=== PATIENT | male | born 1945 | race African-American/Black ===

== ENCOUNTER 2016-12-08 13:31 | Emergency (ER) | payer OTHER ==
[2016-12-08 13:58] VITALS: BP 132/87
--- NOTE | 2016-12-08 14:34 | UC ---
Respiratory Complaint HPI - HPI Summary HPI Summary: This is a 70 yo male with a h/o HTN and prostate CA who presents with c/o cough x 3 weeks. Cough has been dry, no assoc SOB. He complains of a ST and some nasal congestion. No fever or sick contacts. No n/v. Denies h/o lung dz. He has been using OTC cough medications. - History of Current Complaint Chief Complaint: UCGeneralIllness Stated Complaint: COUGH - Allergies/Home Medications Allergies/Adverse Reactions: Allergies Allergy/AdvReac Type Severity Reaction Status Date / Time No Known Allergies Allergy Verified 12/08/16 13:58 PMH/Surg Hx/FS Hx/Imm Hx Cardiovascular History: Hypertension Cancer History: Prostate Cancer - Surgical History Surgical History: Yes Surgery Procedure, Year, and Place: prostatectomy 10 years ago - Family History Known Family History: Positive: None - Social History Alcohol Use: Rare Substance Use Type: None Smoking Status (MU): Never Smoked Tobacco Review of Systems Constitutional: Negative Skin: Negative Eyes: Negative ENT: Negative Respiratory: Cough Cardiovascular: Negative Gastrointestinal: Negative Genitourinary: Negative Motor: Negative Neurovascular: Negative Musculoskeletal: Negative Neurological: Negative Psychological: Negative All Other Systems Reviewed And Are Negative: Yes Physical Exam Triage Information Reviewed: Yes Appearance: Well-Appearing Vital Signs: Initial Vital Signs Temp 98.2 F 12/08/16 13:54 Pulse 78 12/08/16 13:54 Resp 16 12/08/16 13:54 BP 132/87 12/08/16 13:54 Pulse Ox 100 12/08/16 13:54 Vital Signs Reviewed: Yes ENT Exam: Normal ENT: Positive: Normal ENT inspection, Pharynx normal, TMs normal. Negative: Pharyngeal erythema, Tonsillar swelling, Tonsillar exudate Neck: Positive: Supple, Nontender, No Lymphadenopathy Respiratory: Positive: Lungs clear, Other: - freq dry cough during exam. Negative: Crackles, Rhonchi, Wheezing Cardiovascular: Positive: RRR, No Murmur Abdomen Description: Positive: Nontender, Soft Musculoskeletal: Positive: Strength Intact Neurological: Positive: Alert Psychological Exam: Normal Skin Exam: Normal Skin: Negative: rashes UC Diagnostic Evaluation - Laboratory O2 Sat by Pulse Oximetry: 100 Diagnostic Studies Comment: CXR - NAD Respiratory Course/Dx - Course Course Of Treatment: This is a 70 yo gentleman with HTN and h/o prostate CA who presents with c/o cough x 3weeks. No associated SOB. CXR shows no consolidation suggestive of PNA. Sx's likely related to an acute bronchitis. Due to length of symptoms recommend tx with abx and steroid taper. Also consider the cough being allergy mediated. Recommended f/u with PCP in 1 week - Differential Dx/Diagnosis Differential Diagnosis/HQI/PQRI: Asthma, Bronchitis, CHF, Influenza, Laryngitis Provider Diagnoses: 1. Acute bronchitis Discharge - Discharge Plan Condition: Stable Disposition: HOME Prescriptions: Azithromyxin NOÉ (NF) [Z-Noé (Zithromax) 250 mg tabs #6] 2 tab PO .TODAY, THEN 1 DAILY #6 tab Methylprednisolone [Medrol Dosepak 4 MG*] 4 mg PO .SEE NOÉ INSTRUCTION #1 noé Patient Education Materials: Acute Bronchitis (ED) Referrals: Dutch Francis MD [Primary Care Provider] - 1 Week Additional Instructions: Activity: As tolerated Instructions 1. Please take antibiotic and steroid as directed 2. Please follow up with Dr Francis within the next week to ensure you are improving
--- NOTE | 2016-12-08 14:47 | RAD ---
INDICATION: Prolonged cough for 2 weeks. COMPARISON: June 26, 2013 chest radiograph TECHNIQUE: Dual energy PA and routine lateral views of the chest were obtained. REPORT: Clear lungs and pleural spaces. Negative for pneumothorax. The heart, pulmonary vasculature, and mediastinal contours are unremarkable. Unremarkable osseous structures and soft tissue contours. IMPRESSION: No evidence for acute intrathoracic disease.
== END 2016-12-08 15:05 | disposition home or self-care (01) ==
LOC: UCEAST 13:31
DX: J20.9 Acute bronchitis, unspecified (principal); J02.9 Acute pharyngitis, unspecified; R09.81 Nasal congestion; I10 Essential (primary) hypertension; Z85.46 Personal history of malignant neoplasm of prostate
CPT/HCPCS: 71020; 99212; G0463

== ENCOUNTER 2019-02-09 06:27 | Day surgery (SDC) | payer OTHER ==
[~2019-02-09 06:27] MED LIST: Buffered Lidocaine 1% SYRIN* 1 ML/SYRINGE INTRADERM ONE; Dexamethasone IV* 4 MG/ML 1 ML (4 MG) IV SLOW PU ONE; Dexamethasone IV* 4 MG/ML 1 ML (4 MG) ONE; Famotidine IV* 10 MG/ML 2 ML (20 mg) IV ONE; Famotidine IV* 10 MG/ML 2 ML (20 mg) ONE; Lactated Ringers 1000 ML Bag* 1,000 ML IV SCH; Proparacaine 0.5% OPHTH.SOL* 15 ML BTL ONE; mitoMYcin PWD* 0.2 MG in Sterile Water for Inj* 1 ML OPHTHALMIC SCH
[2019-02-09] MEDS ORDERED: Triamcinolone Acetonide* 40 MG/ML 1 ML VIAL ONE (07:10)
[2019-02-09] MEDS ORDERED: Bupivacaine 0.25% SDV PF* 10 ML VIAL INJ ONE (07:10)
[2019-02-09] MEDS ORDERED: BSS OPTH.SOL* BTL ONE (07:11)
[2019-02-09] MEDS ORDERED: Atropine 1% OPHTH.SOL* 1 DROP BTL 2-5 ML ONE (07:11)
[2019-02-09] MEDS ORDERED: Acetylcholine 1:100 OPTH* OPHTH.SOLN ONE (07:11)
[2019-02-09] MEDS ORDERED: Lidocaine 2% w/ EPI 1:200,000* 20 ML SDV VIAL ONE ×2 (07:12→13:48)
[2019-02-09] MEDS ORDERED: Povidone Iodine 5% OPTH* 30 ML BTL ONE ×2 (07:12→13:48)
[2019-02-09] MEDS ORDERED: Hyaluronidase OVINE* 200 UNIT/ML ML SUBCUT ONE (07:13)
[2019-02-09] MEDS ORDERED: Sodium Bicarbonate 8.4% VIAL* 10 ML VIAL IV ONE (07:13)
[2019-02-09] MEDS ORDERED: Ondansetron INJ* 2 MG/ML VIAL ONE (07:22)
[2019-02-09] MEDS ORDERED: Propofol* 10 MG/ML 20 ML BTL ONE (07:22)
[2019-02-09] MEDS ORDERED: Midazolam* 1 MG/ML 2 ML VIAL (2 MG) ONE (07:24)
[2019-02-09] MEDS ORDERED: Atropine 1MG/ML INJ* 1 ML VIAL ONE (07:31)
[2019-02-09] MEDS ORDERED: Naloxone* 0.4 MG/ML 1 ML VIAL IV PRN (07:54)
[2019-02-09 09:37] VITALS: BP 98/52
--- NOTE | 2019-02-09 11:31 | OP ---
DATE OF OPERATION: 02/09/19 - [facility] DATE OF : 45 SURGEON: Williams May MD ANESTHESIA: Local with MAC. PRE-OP DIAGNOSIS: Glaucoma, right eye. POST-OP DIAGNOSIS: Glaucoma, right eye. OPERATIVE PROCEDURE: Trabeculectomy, right eye. COMPLICATIONS: None. DESCRIPTION OF PROCEDURE: The patient was given retrobulbar anesthesia in the operating room. A 50:50 mixture of 0.25 Marcaine with 2% lidocaine with epinephrine 4 cc injected into the muscle cone without difficulty. A 6-0 silk traction suture was placed through the superior limbus and the eye rotated inferiorly. A fornix based conjunctival peritomy performed centered on the 11 o 'clock position with Yu scissors. Mitomycin-C 0.2 mg/mL was placed on a sponge and soaked subtenon for 2 minutes and thoroughly irrigated with balanced salt solution. A triangular limbal based half scleral thickness corneal flap was made with crescent blade. Anterior chamber entered with 3 mm keratome. Paracentesis made at the 9 o'clock position with 75 blade. Anterior chamber irrigated with 1% non-preservative intracameral lidocaine, Miochol and then some DisCoVisc. A 3 x 1 mm trabecular block excised using the Kyra punch. Peripheral iridectomy performed with Vannas scissors. Scleral flap closed with one 10-0 nylon suture at the apex. Conjunctiva closed with running locking 10- 0 nylon suture and a running locking 10-0 Vicryl suture. Topical atropine and Maxitrol given. Eye was patched. [id number]/[facility] #: [id number] MTDD
[2019-02-09] MEDS ORDERED: Phenylephrine OPHTH SOL 2.5%* 2 ML ONE (13:48)
[2019-02-09] MEDS ORDERED: Neomycin/Polymy/Dex OPTH.SUSP* MAXITROL 0.1% 5 ML ONE (13:48)
[2019-02-09] MEDS ORDERED: Ketorolac 0.5% OPHTH (NF) 0.5 % 5 ML BTL ONE (13:48)
[2019-02-09] MEDS ORDERED: acetaZOLAMIDE TAB* 250 MG ONE (13:48)
[2019-02-09] MEDS ORDERED: Lidocaine 1% MPF ** 5 ML VIAL ONE (13:48)
[2019-02-09] MEDS ORDERED: Cyclopentolate 1% OPTH.SOL* 2 ML BTL ONE (13:48)
[2019-02-09] MEDS ORDERED: Proparacaine 0.5% OPHTH.SOL* 15 ML BTL ONE (13:49)
== END 2019-02-09 08:52 | disposition home or self-care (01) ==
LOC: OREAST 06:27
PROVIDERS: ATTEND Specialist
DX: H40.1113 Primary open-angle glaucoma, right eye, severe stage (principal); Z85.46 Personal history of malignant neoplasm of prostate; I10 Essential (primary) hypertension; E11.9 Type 2 diabetes mellitus without complications; Z79.84 Long term (current) use of oral hypoglycemic drugs
CPT/HCPCS: A9270-GY; J0461; J1100; J2250; J2405; J2704; J3301; J3471; J3490; J9280